=== PATIENT | male | born 1990 | race Caucasian/White ===

== ENCOUNTER 2022-11-26 10:54 | Emergency (ER) | payer BC ==
[2022-11-26] MEDS ORDERED: Iopamidol 370 76% 100 ML VIAL ONE (12:18)
[2022-11-26 12:30] LABS: #Basophils 0.1 10x3/uL (0.0-0.2); #Eosinphils 0.4 10x3/uL (0.0-0.5); #Monocytes 0.6 10x3/uL (0.0-1.1); %Basophils 0.6 % (0.0-2.0); %Eosinophils 5.5 % (0.0-6.0); %Lymphocytes 21.4 % (18.0-47.0); %Monocytes 8.1 % (0.0-10.0); %Neutrophils 63.9 % (40.0-75.0); Hematocrit 48.8 % (38.8-50.0); Hemoglobin 17.6 g/dL (13.5-17.5); Mean Corpuscular HGB CONC 36.1 g/dL (32.0-36.0); Mean Corpuscular Hemoglobin 31.9 pg (27.0-33.0); Mean Corpuscular Volume 88.6 fl (81.2-95.1); Mean Platelet Volume 11.5 fl (7.4-10.4); Platelet Count 221 10x3/uL (150-450); RBC Distribution Width 11.5 % (11.5-14.5); Red Blood Cell (RBC) Count 5.51 10x6/uL (4.32-5.72); White Blood Cell (WBC) Count 7.8 10x3/uL (3.5-10.5)
[2022-11-26 13:01] LABS: ALT (SGPT) 43 U/L (8-55); AST (SGOT) 31 U/L (5-34); Alkaline Phosphatase 87 U/L (40-110); Anion Gap 18 mmol/L (10-20); BUN (Urea Nitrogen) 16 mg/dL (8.9-20.6); Bilirubin, Total 1.5 mg/dL (0.2-1.2); Calc. Creatinine Clearance 0 mL/min (70-130); Calcium 10.2 mg/dL (7.8-10.44); Carbon Dioxide 23 mmol/L (22-29); Chloride 103 mmol/L (98-107); Estimated GFR 77; Globulin 3.1 g/dL (2.4-3.5); Glucose 98 mg/dL (70-105); Potassium 4.6 mmol/L (3.5-5.1); Protein, Total 8.1 g/dL (6.0-8.3); Sodium 139 mmol/L (136-145)
== END 2022-11-26 13:33 | disposition home or self-care (01) ==
LOC: CSHERS 10:54
DX: R07.0 Pain in throat (principal)
CPT/HCPCS: 70491; 80053; 85025; Q9967